=== PATIENT | female | born 2000 ===

== ENCOUNTER 2020-07-29 00:28 | Emergency (ER) | payer OTHER, SELFPAY ==
--- NOTE | ~2020-07-29 | CT_ITS ---
EXAMINATION: CT abdomen pelvis w con INDICATION: Right lower quadrant abdominal pain TECHNIQUE: Computed tomographic images of the abdomen and pelvis were obtained after the administrati on of 100 cc of Omnipaque 350 intravenous contrast. The dose-length product (DLP) was 472.17 mGy-cm. Automated exposure control and iterative reconstruction technique were employed. COMPARISON: None available FINDINGS: The lung bases are clear. The heart size is normal. The liver, spleen, pancreas, gallbladde r, and adrenal glands are normal. The kidneys are unremarkable. No pathologically enlarged abdominal or pelvic lymph nodes are identified. There is no free intraperitoneal gas or evidence of bowel obstr uction. The appendix is normal. There is a 3.4 cm cyst of the right adnexa, considered within normal limits in a reproductive age female. A small amount of free fluid in the pelvis is likely physiologic . IMPRESSION: 1. No CT correlate for the patient's symptoms. Reviewed, dictated and finalized at location A.
[2020-07-29 00:34] VITALS: BP 130/84; PULSE 111; RESP 18; TEMP 37.2; O2SAT 100
[2020-07-29 01:00] LABS: Basophils Percent Auto 0.3 % (0.2-1.2); Eosinophils Absolute Auto 0.2 K/mm3 (0-0.3); Eosinophils Percent Auto 1.2 % (0-4.4); Hematocrit 40.6 % (37.0-47.0); Hemoglobin 13.6 g/dL (12.0-15.0); Immature Granulocyte Absolute 0.05 K/mm3 (0.00-0.031); Immature Granulocyte Percent A 0.4 % (0-0.5); Lymphocytes Percent Auto 23.5 % (18.3-44.2); Mean Corpuscular HGB Conc 33.5 g/dl (32-36); Mean Corpuscular Hemoglobin 30.4 pg (26-34); Mean Corpuscular Volume 90.8 fl (80-100); Mean Platelet Volume 10.3 fl (7.4-10.4); Monocytes Absolute Auto 0.8 K/mm3 (0.1-0.6); Monocytes Percent Auto 5.8 % (2.6-8.5); Neutrophils Absolute Auto 9.7 K/mm3 (1.3-6.7); Neutrophils Percent Auto 68.8 % (45.5-73.1); Platelet Count Result 338 k/mm3 (150-375); Red Blood Count 4.47 M/mm3 (4.2-5.4); Red Cell Distribution Width 12.6 % (11.5-14.5)
[2020-07-29 01:03] LABS: Add Urine Microscopic? YES; Appearance Urine Clear (Clear); Bacteria Urine Trace /hpf; Bilirubin Urine Negative (Negative); Blood Urine Negative (Negative); Color Urine Straw (Yellow); Glucose Urine UA Negative (Negative); Ketones Urine Trace mg/dL (Negative); Leukocyte Esterase Ur 2+ LEU/UL (Negative); Nitrate Urine Negative (Negative); Protein Urine Negative (Negative); Specific Grav Ur 1.008 (1.001-1.035); Squamous Epithelial Cell Urine Many /hpf (Few); Urobilinogen Urine Negative mg/dL (<2.0); WBC Urine >75 /hpf
[2020-07-29 01:12] LABS: Alanine Aminotransferase 22 U/L (4-35); Albumin Level 4.4 g/dL (3.5-5.1); Alkaline Phosphatase 78 U/L (38-126); Anion Gap 9 mmol/L (8-16); Aspartate Amino Transferase 25 U/L (14-36); Bilirubin,Total 0.4 mg/dL (0.2-1.3); Blood Urea Nitrogen 7 mg/dL (7-17); Calcium 9.4 mg/dL (8.4-10.2); Carbon Dioxide 23 mmol/L (22-30); Chloride 103 mmol/L (98-107); Estimated Glomerular Filt Rate > 60; Glucose 100 mg/dL (65-105); Lipase 42 U/L (23-300); Potassium 3.4 mmol/L (3.4-5.0); Sodium 135 mmol/L (137-145)
[2020-07-29] MEDS: LACTATED RINGERS 1,000 ML 999 ML IV CONT (01:18)
--- NOTE | 2020-07-29 01:29 | ED.ABDPAIN ---
HPI - Abdominal Pain General Chief Complaint: Abdominal Pain Stated Complaint: lower abd pain Time Seen by Provider: 07/29/20 00:42 Source: patient Mode of arrival: ambulatory Limitations: no limitations History of Present Illness HPI narrative: This patient is a 20 year old female who presents for evaluation of right lower abdominal pain. She states 2 days ago she developed generalized abdominal pain. This morning she states her pain became located to right lower abdomen and her pain has worsened. She has been taking ibuprofen for her pain and it does help. She has associated nausea but no vomiting or diarrhea. She also states she has some burning with urination. Related Data Allergies Allergy/AdvReac Type Severity Reaction Status Date / Time No Known Allergies Allergy Verified 07/29/20 00:29 Review of Systems Review of Systems: All systems reviewed & are unremarkable except as noted in HPI and below Constitutional: Constitutional: Denies chills and Denies fever(s) Respiratory: Respiratory: Denies cough and Denies dyspnea Gastrointestinal: Gastrointestinal: Reports abdominal pain, Denies diarrhea, Reports nausea and Denies vomiting Genitourinary: Genitourinary: Denies hematuria, Reports dysuria and Denies flank pain Musculoskeletal: Musculoskeletal: Denies back pain PMFSH Past Medical History Medical History (Updated 07/29/20 @ 02:47 by Sarita Muse MD) ADHD Anxiety Depression Surgical History Surgical History (Updated 07/29/20 @ 01:30 by Sarita Muse MD) H/O wisdom tooth extraction Exam Narrative: Exam Narrative: GENERAL: Well-appearing, well-nourished, and in no acute distress. HEAD: Normocephalic, atraumatic EYES: PERRLA and EOMI, conjunctiva clear without discharge THROAT:Mucous membranes moist, Oropharynx normal without erythema, exudate, peritonsillar swelling or fluctuance NECK: Supple, without lymphadenopathy or mass RESPIRATORY: No respiratory distress, Airway patent, Respirations non-labored, Clear to auscultation without rales, rhonchi or wheeze HEART: Regular rate and rhythm. No murmur heard. Normal peripheral pulses. ABDOMEN: Soft, RLQ suprapubic, nondistended, normal active bowel sounds. No masses. No rebound or guarding, No organomegaly. EXTREMITIES: No edema, normal strength with full range of motion. SKIN: Warm, dry, normal color without rash NEURO: Alert and oriented x3. CN 2-12 grossly intact. No focal deficits. PSYCH: Normal mood and affect. : Speculum Exam - Vagina: abnormal vaginal discharge yellow Speculum Exam - Cervix: Cervical os closed Bimanual exam- vagina & uterus: no cervical motion tenderness Bimanual Exam- Adnexa, other: no masses noted Course Reevaluation(s) Reevaluation #1: I Discussed with patient that CT shows normal appendix. She has a UTI and an ovarian cyst. She understands follow up. Date: 07/29/20 Time: 02:46 Vital Signs Vital signs: Vital Signs Temperature 99.0 F 07/29/20 00:34 Pulse Rate 111 H 07/29/20 00:34 Respiratory Rate 18 07/29/20 00:34 Blood Pressure 130/84 07/29/20 00:34 Pulse Oximetry 100 07/29/20 00:34 Temperature 99.0 F 07/29/20 00:34 Pulse Rate 80 07/29/20 03:49 Respiratory Rate 16 07/29/20 03:49 Blood Pressure 134/88 07/29/20 03:49 Pulse Oximetry 97 07/29/20 03:49 MDM - Abdominal Pain Lab Data Attestation: I reviewed the patient's lab results. Result diagrams: 07/29/20 00:52 07/29/20 00:52 Labs: Lab Results 07/29/20 07/29/20 07/29/20 Range/Units 00:52 00:52 00:52 WBC 14.0 H (4.5-10.0) K/mm3 RBC 4.47 (4.2-5.4) M/mm3 Hgb 13.6 (12.0-15.0) g/dL Hct 40.6 (37.0-47.0) % MCV 90.8 (80-100) fl MCH 30.4 (26-34) pg MCHC 33.5 (32-36) g/dl RDW 12.6 (11.5-14.5) % Plt Count 338 (150-375) k/mm3 MPV 10.3 (7.4-10.4) fl Immature Gran % (Auto) 0.4 (0-0.5) % Neut % (Auto) 68.8 (45.5-73.1) % Lymp
[2020-07-29 03:49] VITALS: BP 134/88; PULSE 80; RESP 16; O2SAT 97
== END 2020-07-29 04:02 | disposition home or self-care (01) ==
PROVIDERS: Emergency Provider General Practice
DX: N39.0 Urinary tract infection, site not specified (principal); N83.201 Unspecified ovarian cyst, right side
CPT/HCPCS: 36415; 74177; 80053; 81001; 81025; 83690; 85025; 87070; 87077; 87086; 87088; 87491; 87591; 87808; 96374; 96375; 99284; J0131; J0696; J7120; Q9967

== ENCOUNTER 2020-08-24 22:32 | Inpatient (IN) | payer OTHER, SELFPAY ==
[2020-08-24] VITALS (10 sets, daily range): BP systolic 104–160; BP diastolic 68–130; PULSE 120–146; RESP 14–22; TEMP 38.3; O2SAT 91–100
--- NOTE | ~2020-08-24 | CT_ITS ---
EXAMINATION: CT abdomen pelvis w con DATE: 08/25/2020 00:08 INDICATION: Lower abdominal pain TECHNIQUE: Computed tomography (CT) of the abdomen and pelvis was performed with 100 cc Omnipaque 350 intravenous contrast. The dose-length product was 381.77 mGy-cm. Automated exposure control and iter ative reconstruction technique were employed. COMPARISON: CT dated 07/29/2020. FINDINGS: Lung bases are unremarkable. No significant pleural or pericardial effusion. Heart size nor mal. The liver, spleen, pancreas, adrenal glands and kidneys are unremarkable. There is mild urothelial en hancement. There is bladder wall thickening. There are bilateral ovarian cysts, largest measuring dariel roximately 3 cm maximum dimension in the right ovary. Nonobstructive bowel gas pattern. No significan t vascular abnormality. Gallbladder is present. No lymphadenopathy. IMPRESSION: 1. Mild bladder wall thickening with urothelial enhancement. Cannot exclude cystitis with ascending u rinary tract infection. Consider correlation with urinalysis. 2: Bilateral ovarian cysts, likely physiologic. Reviewed, dictated and finalized at location A. IMPRESSION: 1. Mild bladder wall thickening with urothelial enhancement. Cannot exclude cys titis with ascending urinary tract infection. Consider correlation with urinaly sis. 2: Bilateral ovarian cysts, likely physiologic.
--- NOTE | 2020-08-24 22:51 | ECG_ITS ---
Measurements Intervals [place] Rate: 139 P: 50 NV: 129 QRS: 41 QRSD: 86 T: 35 QT: 352 QTc: 536 Interpretive Statements SINUS TACHYCARDIA NONSPECIFIC T-WAVE ABNORMALITY- INFERIOR LEADS BASELINE WANDER- V4 ABNORMAL ECG Electronically Signed On 08-25-2020 7:47:28 CDT by Gray Temple D.O.
[2020-08-24] MEDS: MORPHINE SULFATE (*CRX) 4 MG/ML INJ IV PUSH (22:55)
[2020-08-24] MEDS: SODIUM CHLORIDE 0.9% IV 1,000 ML 999 ML IV CONT (22:55)
[2020-08-24] MEDS: ONDANSETRON INJ 4 MG/2 ML VIAL IV PUSH (22:55)
--- NOTE | 2020-08-24 23:06 | ED.ABDPAIN ---
HPI - Abdominal Pain General Chief Complaint: Abdominal Pain Stated Complaint: right sided pain, fever Time Seen by Provider: 08/24/20 22:40 Source: patient and family Mode of arrival: ambulatory Limitations: no limitations History of Present Illness HPI narrative: 20 years old white female presents with diffuse lower abdominal pain that started earlier today associated with nausea, dysuria, fever, dull aching radiating to lower back and mid back bilaterally, slightly better with ibuprofen, nothing make it better. She denies any vaginal bleeding or discharge. Last menstrual. 1 week ago, never been , she does vape, drinks occasionally, no drugs. History of ADHD and anxiety. Patient reports having similar symptoms 3 weeks ago with a diagnosis of right ovarian cyst and urinary tract infection. Patient had positive COVID-19 test June 29. Related Data Home Medications Medication Instructions Recorded Confirmed methylphenidate HCl [Concerta] mg PO 08/24/20 norethindrone ac-eth estradiol tablet 08/24/20 Allergies Allergy/AdvReac Type Severity Reaction Status Date / Time No Known Allergies Allergy Verified 08/24/20 22:47 Review of Systems Review of Systems: Narrative: CONSTITUTIONAL: Denies fever, chills, or sweats. EYES: Denies visual changes, redness, or discharge. ENT: Denies rhinorrhea, congestion, sore throat, or otalgia. CARDIOVASCULAR: Denies chest pain, palpitations, or edema. RESPIRATORY: Denies cough or dyspnea. GASTROINTESTINAL: Denies abdominal pain, nausea, vomiting, or diarrhea. GENITOURINARY: Denies dysuria or hematuria. SKIN: Denies rash or itching. MUSCULOSKELETAL: Denies back pain, joint pain, or myalgia. NEUROLOGIC: Denies headache, numbness, or weakness. PSYCHIATRIC: Denies anxiety or depression. PMFSH Past Medical History Medical History ADHD Anxiety Depression Surgical History Surgical History H/O wisdom tooth extraction Exam Narrative: Exam Narrative: General appearance: Well-developed, well-nourished, looks in pain, mother at the bedside Skin: Normal color Head: Normocephalic, nontraumatic Eyes: Clear conjunctiva ENT: Oropharynx normal, ears normal, nose normal Neck: Supple, nontender Chest and respiratory: Airway patent, no respiratory distress, no accessory muscle use Heart: Tachycardia Abdomen: Soft, severe diffuse tenderness lower abdomen bilaterally, positive guarding and rebound, quiet bowel sounds Neurologic: Alert and oriented ?3, OUTPATIENT CODING SPECIALIST is normal as tested, no gross motor deficit Course Course Emergency Course: Stable Reevaluation(s) Reevaluation #1: Currently patient having no fever, but still having pain at the lower abdomen bilaterally which is less than on arrival. Patient heart rate is 121 bpm at this time compared to 155 on arrival. Patient received 1 L of normal saline, Rocephin 1 g IV, morphine 4 mg, Zofran [address] abdomen and pelvis. Signout to Dr. Robb at shift change Date: 08/25/20 Time: 00:28 Vital Signs Vital signs: Vital Signs Temperature 38.3 C H 08/24/20 22:41 Pulse Rate 145 H 08/24/20 22:41 Respiratory Rate 18 08/24/20 22:41 Blood Pressure 108/72 08/24/20 22:41 Pulse Oximetry 97 08/24/20 22:41 Temperature 38.3 C H 08/24/20 22:41 Pulse Rate 126 H 08/24/20 23:37 Respiratory Rate 22 H 08/24/20 23:37 Blood Pressure 104/68 08/24/20 23:37 Pulse Oximetry 100 08/24/20 23:37 MDM - Abdominal Pain MDM Narrative Medical decision making narrative: Patient presents with lower abdominal pain/dizziness nausea and fever. Urin
[2020-08-24 23:21] LABS: Basophils Percent Auto 0.2 % (0.2-1.2); Hematocrit 35.1 % (37.0-47.0); Hemoglobin 11.9 g/dL (12.0-15.0); Immature Granulocyte Absolute 0.18 K/mm3 (0.00-0.031); Immature Granulocyte Percent A 1.5 % (0-0.5); Lymphocytes Absolute Auto 0.93 K/mm3 (0.9-3.2); Lymphocytes Percent Auto 7.5 % (18.3-44.2); Mean Corpuscular HGB Conc 33.9 g/dl (32-36); Mean Corpuscular Hemoglobin 30.4 pg (26-34); Mean Corpuscular Volume 89.8 fl (80-100); Mean Platelet Volume 10.7 fl (7.4-10.4); Monocytes Absolute Auto 0.9 K/mm3 (0.1-0.6); Monocytes Percent Auto 7.4 % (2.6-8.5); Neutrophils Absolute Auto 10.3 K/mm3 (1.3-6.7); Neutrophils Percent Auto 83.4 % (45.5-73.1); Platelet Count Result 267 k/mm3 (150-375); Red Blood Count 3.91 M/mm3 (4.2-5.4); Red Cell Distribution Width 12.1 % (11.5-14.5); White Blood Count 12.4 K/mm3 (4.5-10.0)
[2020-08-24 23:29] LABS: Alanine Aminotransferase 23 U/L (4-35); Albumin Level 4.4 g/dL (3.5-5.1); Alkaline Phosphatase 64 U/L (38-126); Anion Gap 12 mmol/L (8-16); Aspartate Amino Transferase 25 U/L (14-36); Bilirubin,Total 0.8 mg/dL (0.2-1.3); Blood Urea Nitrogen 8 mg/dL (7-17); Calcium 9.5 mg/dL (8.4-10.2); Carbon Dioxide 24 mmol/L (22-30); Chloride 101 mmol/L (98-107); Estimated CRCL calculation 101 ml/min; Estimated Glomerular Filt Rate > 60; Glucose 112 mg/dL (65-105); Lipase 19 U/L (23-300); Potassium 3.4 mmol/L (3.4-5.0); Sodium 137 mmol/L (137-145)
[2020-08-24 23:36] LABS: Add Urine Microscopic? YES; Appearance Urine Cloudy (Clear); Bacteria Urine Trace /hpf; Bilirubin Urine Negative (Negative); Blood Urine Negative (Negative); Color Urine Yellow (Yellow); Glucose Urine UA Negative (Negative); Ketones Urine Negative (Negative); Leukocyte Esterase Ur 3+ LEU/UL (Negative); Mucus Urine Few /lpf; Nitrate Urine Negative (Negative); Protein Urine 1+ mg/dL (Negative); Specific Grav Ur 1.017 (1.001-1.035); Squamous Epithelial Cell Urine Many /hpf (Few); WBC Clumps Urine Present /HPF; WBC Urine >75 /hpf
[2020-08-25] VITALS (15 sets, daily range): BP systolic 100–111; BP diastolic 49–66; PULSE 100–130; RESP 16–22; TEMP 36.6–38; O2SAT 96–100; BMI 28.1
--- NOTE | 2020-08-25 01:30 | ADMGEN ---
This patient, Shyla Aguilar, was admitted to [facility] Surg Room 303-01. Patient/family oriented to hospital policies and general routines including ID bracelet, bed and alarms, visiting hours, pain management, procedures, bathroom and other care routines, personal items, smoking policy, room service/diet, and visiting hours. Valuables list has been completed. Information on how to activate the Rapid Response Team has been discussed. Patient/Family are encouraged to report perceived risks to care and to ask questions if they do not understand what they are told or what they should do.
[2020-08-25] MEDS: SODIUM CHLORIDE 0.9% IV 1,000 ML 125 ML IV CONT ×3 (01:55→16:30)
--- NOTE | 2020-08-25 03:01 | PM.IMHP ---
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 The patient reports that she was COVID-19 postive on June 29 and she self quarantined but did also suffer another UTI about 3 weeks ago. Before this summer she had never had a UTI before. Associated symptoms tonight include fever and nausea. The patient was evaluated in the ER tonight and found to have an abnormal urinalysis. CT abd/pelvis was performed which demonstrated cystitis and inflammed ureter but no hydronephrosis. The patient was treated with IV antibiotics and admitted for further care. She has no other complaints. Review of Systems Review of Systems: All systems reviewed & are unremarkable except as noted in HPI and below PMFSH Past Medical History Medical History ADHD Anxiety Depression Surgical History Surgical History H/O wisdom tooth extraction Family History Family History Father TIA (transient ischemic attack) Mother Ovarian cyst Social History Social History Smoking status: Current every day smoker Tobacco type: e-cigarettes/vaping Additional smoking assessment comments: Uses 50mcg nicotine solution and a 30ml bottle lasts 1 week. Alcohol intake: current Drinks per week: 1 Substance use: never Gender identity (if verbalized by the patient): Female Spiritual care concerns: No Meds Home Medications and Allergies Home Medications Medication Instructions Recorded Confirmed Type methylphenidate HCl [Concerta] 27 mg PO DAILY 08/24/20 08/25/20 History norethindrone ac-eth estradiol 1 tablet PO DAILY 08/24/20 08/25/20 History [Loestrin 12/18 (21)] Allergies Allergy/AdvReac Type Severity Reaction Status Date / Time No Known Allergies Allergy Verified 08/24/20 22:47 Vital Signs Vital Signs - 24 hr 08/24/20 22:41 08/24/20 22:54 08/24/20 23:00 Temperature 38.3 C H Pulse Rate 145 H 146 H 133 H Respiratory Rate 18 14 14 Blood Pressure 108/72 Pulse Oximetry 97 98 95 08/24/20 23:01 08/24/20 23:17 08/24/20 23:30 Temperature Pulse Rate 136 H 136 H 120 H Respiratory Rate 20 Blood Pressure 114/73 Pulse Oximetry 95 91 08/24/20 23:31 08/24/20 23:37 08/24/20 23:58 Temperature Pulse Rate 129 H 126 H 121 H Respiratory Rate 19 22 H 16 Blood Pressure 104/68 104/68 Pulse Oximetry 99 100 99 08/24/20 23:59 08/25/20 00:00 08/25/20 00:01 Temperature Pulse Rate 125 H 129 H 121 H Respiratory Rate 16 18 Blood Pressure 160/130 H 104/61 Pulse Oximetry 98 100 98 08/25/20 00:15 08/25/20 00:30 08/25/20 00:31 Temperature Pulse Rate 128 H 126 H 130 H Respiratory Rate 21 H 22 H 16 Blood Pressure 103/61 Pulse Oximetry 98 98 97 08/25/20 00:34 08/25/20 01:18 08/25/20 01:32 Temperature 38.0 C H 38.0 C H 37.9 C H Pulse Rate 128 H 120 H 121 H Respiratory Rate 22 H 22 H 20 Blood Pressure 103/61 100/63 102/66 Pulse Oximetry 96 97 100 08/25/20 02:05 Temperature 38.0 C H Pulse Rate Respiratory Rate Blood Pressure Pulse Oximetry Exam Const: General: cooperative, no acute distress, alert, awake, ill appearing and other (febrile to touch++ ) Nutritional Appearance: well nourished Orientation/consciousness: patient oriented x3 HENMT: Head: normal to inspection General nose exam: Normal external nose present Face and sinus: normal facial exam Mouth: Yes Normal oral and palatal mucosa present and Yes oropharynx normal Eyes: Pupils: Equal, round and reactive pupils present EOM: EOMs intact bilater
[2020-08-25 06:55] LABS: Anion Gap 5 mmol/L (8-16); Blood Urea Nitrogen 5 mg/dL (7-17); Calcium 8.7 mg/dL (8.4-10.2); Carbon Dioxide 25 mmol/L (22-30); Chloride 106 mmol/L (98-107); Estimated CRCL calculation 104 ml/min; Estimated Glomerular Filt Rate > 60; Glucose 109 mg/dL (65-105); Potassium 3.8 mmol/L (3.4-5.0); Sodium 136 mmol/L (137-145)
--- NOTE | 2020-08-25 09:35 | PM.IMPN ---
Progress Note: A&P Assessment and Plan (1) Pyelonephritis: Code(s): N12 - Tubulo-interstitial nephritis, not specified as acute or chronic Status: Acute Assessment and Plan: Urinalysis grossly abnormal. CT a/p mild bladder wall thickening with urothelial enhancement, ascending UTI not excluded. She has significant CVA tenderness. Renal function is appropriate. Continue IV Rocephin and IV fluids Urine culture is pending; await culture and tailor abx accordingly (2) Sepsis: Qualifiers: Sepsis type: sepsis due to unspecified organism Sepsis acute organ dysfunction status: without acute organ dysfunction Qualified Code(s): A41.9 - Sepsis, unspecified organism Code(s): A41.9 - Sepsis, unspecified organism Status: Acute Assessment and Plan: Secondary to urinary tract infection. Febrile with T-max of 100.4?. She has been tachycardic up to 130s. This is improving and she is now in 110s. Improving leukocytosis at 12.4 today. Continue IV antibiotics Continue IV fluids Blood cultures pending (3) Anemia: Qualifiers: Anemia type: unspecified type Qualified Code(s): D64.9 - Anemia, unspecified Code(s): D64.9 - Anemia, unspecified Status: Acute Assessment and Plan: Mild anemia. H&H is stable. Suspect iron deficiency. Her LMP was approximately 1 week ago and she reports somewhat heavy periods. No signs of active bleeding. Monitor H&H; transfuse as needed for Hgb <7.0 (4) Ovarian cyst: Qualifiers: Laterality: bilateral Qualified Code(s): N83.201 - Unspecified ovarian cyst, right side; N83.202 - Unspecified ovarian cyst, left side Code(s): N83.209 - Unspecified ovarian cyst, unspecified side Status: Acute Assessment and Plan: Reports history of ovarian cysts. Recently seen in ED and had 3.4 cm right ovarian cyst seen at that time. She was scheduled for follow up with OBGYN but has not been able to follow up. CT a/p 08/25 shows bilateral ovarian cysts, likely physiologic, largest measuring 3 cm max of right ovary. She complains of 6/10 lower abdominal pain. Ibuprofen as needed for pain Follow up with OBGYN Subjective Date/time seen: 08/25/20 09:35 Interval history: date of service: 08/25/2020 Shyla Aguilar is a 20-year-old female with a history of ovarian cysts and recent chlamydia infection who is seen in follow-up for probable pyelonephritis with sepsis. She is complaining of bilateral lower abdominal pain rated 6/10. She has significant dysuria and reports her urine is cloudy. She denies urgency, frequency, or hematuria. Denies vaginal discharge. She complains of flank pain and back pain. She reports fevers and chills. Denies any nausea or vomiting. No shortness of breath, LIND, cough, chest pain, or palpitations. she has been on clear liquids and has requested to advance to a regular diet. She denies dizziness, lightheadedness, weakness, or fatigue. She has no additional concerns. Review of Systems Review of Systems: Narrative: 12 systems reviewed with pertinent positives and negatives as per HPI. Exam Narrative: Exam Narrative: Ms. Aguilar is a well nourished, well appearing 20 year old female who is walking around the room. She appears comfortable and is in NAD. HR 114, BP 102/61, RR 16, T 98.9, 100% on room air Neuro: awake, alert and oriented x4, speech clear, no focal neuro deficits noted HEENMT: normocephalic, atraumatic, EOMI, sclerae anicteric, moist oral mucosa, tongue midline, nares patent Neck: supple, no lymphadenopathy Respiratory: clear to auscultation bilaterally, nonlabored breathing Cardio: tachycardic, regular rhythm with S1-S2 Abdomen: nondistended, normoactive bowel sounds, soft, tender to palpation in lower quadrants and flanks, no rigidity or guarding, no rebound tenderness : bilateral CVA tenderness Extremities: no edema, erythema, cyanosis, clubbing, or tende
[2020-08-25] MEDS: IBUPROFEN 400 MG TABLET PO (10:23)
[2020-08-25] MEDS: MORPHINE SULFATE (*CRX) 2 MG/ML INJ IV PUSH (16:30)
[2020-08-25] MEDS: ONDANSETRON INJ 4 MG/2 ML VIAL IV PUSH (18:22)
[2020-08-25] MEDS: ACETAMINOPHEN 325 MG TABLET 650 MG PO (18:23)
[2020-08-26] MEDS: SODIUM CHLORIDE 0.9% IV 1,000 ML 125 ML IV CONT ×2 (00:29→09:42)
[2020-08-26] MEDS: MORPHINE SULFATE (*CRX) 2 MG/ML INJ IV PUSH (00:44)
[2020-08-26] MEDS: ONDANSETRON INJ 4 MG/2 ML VIAL IV PUSH ×2 (00:46→14:19)
[2020-08-26] MEDS: ACETAMINOPHEN 325 MG TABLET 650 MG PO ×3 (03:16→23:21)
[2020-08-26 05:46] VITALS: BP 92/52; PULSE 96; RESP 18; TEMP 36.4; O2SAT 98
[2020-08-26 06:37] LABS: Basophils Percent Auto 0.2 % (0.2-1.2); Eosinophils Percent Auto 0.2 % (0-4.4); Hematocrit 30.3 % (37.0-47.0); Immature Granulocyte Absolute 0.08 K/mm3 (0.00-0.031); Immature Granulocyte Percent A 0.5 % (0-0.5); Lymphocytes Absolute Auto 1.73 K/mm3 (0.9-3.2); Lymphocytes Percent Auto 10.5 % (18.3-44.2); Mean Corpuscular Hemoglobin 30.1 pg (26-34); Mean Corpuscular Volume 91.3 fl (80-100); Mean Platelet Volume 10.5 fl (7.4-10.4); Monocytes Absolute Auto 1.7 K/mm3 (0.1-0.6); Monocytes Percent Auto 10.4 % (2.6-8.5); Neutrophils Absolute Auto 12.9 K/mm3 (1.3-6.7); Neutrophils Percent Auto 78.2 % (45.5-73.1); Platelet Count Result 205 k/mm3 (150-375); Red Blood Count 3.32 M/mm3 (4.2-5.4); Red Cell Distribution Width 12.7 % (11.5-14.5); White Blood Count 16.5 K/mm3 (4.5-10.0)
[2020-08-26 06:46] LABS: Anion Gap 5 mmol/L (8-16); Blood Urea Nitrogen 2 mg/dL (7-17); Calcium 8.3 mg/dL (8.4-10.2); Carbon Dioxide 23 mmol/L (22-30); Chloride 108 mmol/L (98-107); Estimated CRCL calculation 141 ml/min; Estimated Glomerular Filt Rate > 60; Glucose 99 mg/dL (65-105); Potassium 3.3 mmol/L (3.4-5.0); Sodium 136 mmol/L (137-145)
[2020-08-26 14:00] VITALS: BP 115/64; PULSE 98; RESP 18; TEMP 36.6; O2SAT 100
[2020-08-26] MEDS: IBUPROFEN 400 MG TABLET PO ×2 (14:19→20:31)
--- NOTE | 2020-08-26 16:22 | PM.IMPN ---
Progress Note: A&P Assessment and Plan (1) Pyelonephritis: Code(s): N12 - Tubulo-interstitial nephritis, not specified as acute or chronic Status: Acute Assessment and Plan: Urinalysis grossly abnormal. CT a/p showed mild bladder wall thickening with urothelial enhancement, ascending UTI not excluded. She has significant CVA tenderness. Renal function is appropriate. Urine culture growing >100,000 E coli. Continue IV Rocephin Discontinue IV fluids as patient is tolerating PO intake and vitals are stable Await final urine cultures and tailor abx accordingly. Hopeful discharge tomorrow with transition to PO abx if continued improvement. (2) Sepsis: Qualifiers: Sepsis type: sepsis due to unspecified organism Sepsis acute organ dysfunction status: without acute organ dysfunction Qualified Code(s): A41.9 - Sepsis, unspecified organism Code(s): A41.9 - Sepsis, unspecified organism Status: Acute Assessment and Plan: Secondary to urinary tract infection. Febrile with T-max of 100.9?. She has been tachycardic up to 130s. This is improving and she is now in 110s. Increased leukocytosis at 16.5 today. Tachycardia has resolved and she has been afebrile today. Continue IV antibiotics IV fluids discontinued as above. Preliminary BCx with NGTD. Await final cultures (3) Anemia: Qualifiers: Anemia type: unspecified type Qualified Code(s): D64.9 - Anemia, unspecified Code(s): D64.9 - Anemia, unspecified Status: Acute Assessment and Plan: Mild anemia. H&H is stable. Suspect iron deficiency. Her LMP was approximately 1 week ago and she reports somewhat heavy periods. No signs of active bleeding. Mild decline in H&H today which I suspect is dilutional given IV fluids. Monitor H&H; transfuse as needed for Hgb <7.0 (4) Ovarian cyst: Qualifiers: Laterality: bilateral Qualified Code(s): N83.201 - Unspecified ovarian cyst, right side; N83.202 - Unspecified ovarian cyst, left side Code(s): N83.209 - Unspecified ovarian cyst, unspecified side Status: Chronic Assessment and Plan: Reports history of ovarian cysts. Recently seen in ED and had 3.4 cm right ovarian cyst seen at that time. She was scheduled for follow up with OBGYN but has not been able to follow up. CT a/p 08/25 shows bilateral ovarian cysts, likely physiologic, largest measuring 3 cm max of right ovary. She complains of 6/10 lower abdominal pain. Ibuprofen as needed for pain Follow up with OBGYN Subjective Date/time seen: 08/26/20 16:22 Interval history: Date of service: 08/26/2020 Shyla Aguilar is a 20-year-old female with a history of ovarian cysts and recent UTI and chlamydia infection who is seen in follow-up for pyelonephritis with sepsis. She reports that she is feeling better today. Her lower abdominal pain has improved. However, she reports an episode of pain this afternoon that was so severe it caused her to vomit. Back pain and flank pain persist. She denies dysuria, hematuria, urgency, or frequency. She denies fevers or chills. Appetite has been good. No cough, shortness of breath, LIND, chest pain, palpitations, dizziness, or lightheadedness. Review of Systems Review of Systems: Narrative: Twelve systems reviewed with pertinent positives and negatives as per HPI. Exam Narrative: Exam Narrative: Ms. Aguilar is a well nourished, well appearing 20 year old female who is walking around the room. She appears comfortable and is in NAD. HR 96, BP 92/52, R 18, T 97.6?, 98% on room air Neuro: awake, alert and oriented x4, speech clear, no focal neuro deficits noted HEENMT: normocephalic, atraumatic, EOMI, sclerae anicteric, moist oral mucosa, tongue midline, nares patent Neck: supple, no lymphadenopathy Respiratory: clear to auscultation bilaterally, nonlabored breathing Cardio: Regular rate, regular rhythm with S1-S2 Abdomen: non
[2020-08-26] MEDS: POTASSIUM CHLORIDE 20 MEQ TABLET PO (18:30)
[2020-08-26 21:44] VITALS: BP 101/60; PULSE 95; RESP 20; TEMP 36.9; O2SAT 100
[2020-08-27 06:00] VITALS: BP 108/63; PULSE 92; RESP 16; TEMP 36.4; O2SAT 100
[2020-08-27 06:39] LABS: Basophils Percent Auto 0.2 % (0.2-1.2); Eosinophils Absolute Auto 0.3 K/mm3 (0-0.3); Eosinophils Percent Auto 2.3 % (0-4.4); Hemoglobin 9.9 g/dL (12.0-15.0); Immature Granulocyte Absolute 0.03 K/mm3 (0.00-0.031); Immature Granulocyte Percent A 0.3 % (0-0.5); Lymphocytes Absolute Auto 2.53 K/mm3 (0.9-3.2); Lymphocytes Percent Auto 23.3 % (18.3-44.2); Mean Corpuscular Hemoglobin 30.6 pg (26-34); Mean Corpuscular Volume 92.6 fl (80-100); Monocytes Absolute Auto 1.1 K/mm3 (0.1-0.6); Monocytes Percent Auto 10.3 % (2.6-8.5); Neutrophils Absolute Auto 6.9 K/mm3 (1.3-6.7); Neutrophils Percent Auto 63.6 % (45.5-73.1); Platelet Count Result 223 k/mm3 (150-375); Red Blood Count 3.24 M/mm3 (4.2-5.4); Red Cell Distribution Width 12.7 % (11.5-14.5); White Blood Count 10.9 K/mm3 (4.5-10.0)
[2020-08-27 06:52] LABS: Anion Gap 7 mmol/L (8-16); Calcium 8.9 mg/dL (8.4-10.2); Carbon Dioxide 24 mmol/L (22-30); Chloride 108 mmol/L (98-107); Estimated CRCL calculation 141 ml/min; Estimated Glomerular Filt Rate > 60; Glucose 79 mg/dL (65-105); Potassium 3.8 mmol/L (3.4-5.0); Sodium 139 mmol/L (137-145)
[2020-08-27 07:28] LABS: Blood Urea Nitrogen < 2 mg/dL (7-17)
--- NOTE | 2020-08-27 09:57 | PM.DS ---
DS: Admitting Diagnosis Admitting Diagnosis Admitting Diagnosis: Urinary tract infection DS: Discharge Diagnosis Discharge Diagnosis (1) Pyelonephritis: Code(s): N12 - Tubulo-interstitial nephritis, not specified as acute or chronic Status: Acute Assessment and Plan: Urinalysis grossly abnormal. CT a/p showed mild bladder wall thickening with urothelial enhancement, ascending UTI not excluded. She had significant CVA tenderness. Urine culture grew >100,000 E coli sensitive to Rocephin. She received 3 doses IV Rocephin and was rehydrated with IV fluids. She will continue PO Cefdinir bid for 10 days. (2) Sepsis: Qualifiers: Sepsis acute organ dysfunction status: without acute organ dysfunction Sepsis type: sepsis due to unspecified organism Qualified Code(s): A41.9 - Sepsis, unspecified organism Code(s): A41.9 - Sepsis, unspecified organism Status: Acute Assessment and Plan: Evident by fever, tachycardia, and leukocytois. Secondary to urinary tract infection. At presentation, she was febrile with T-max of 100.9?, tachycardic up to 130s, and WBC elevated up to 16.5. She was rehydrated with IV fluids. Blood cultures with NGTD, final cultures will be monitored. Fever and tachycardia resolved. Leukocytosis markedly improved, 10.9 at time of discharge. (3) Anemia: Qualifiers: Anemia type: unspecified type Qualified Code(s): D64.9 - Anemia, unspecified Code(s): D64.9 - Anemia, unspecified Status: Acute Assessment and Plan: Mild anemia. H&H is stable. Suspect iron deficiency in menstruating female. Her LMP was approximately 1 week ago and she reports somewhat heavy periods. No signs of active bleeding. Vital signs remained stable. (4) Ovarian cyst: Qualifiers: Laterality: bilateral Qualified Code(s): N83.201 - Unspecified ovarian cyst, right side; N83.202 - Unspecified ovarian cyst, left side Code(s): N83.209 - Unspecified ovarian cyst, unspecified side Status: Chronic Assessment and Plan: Reports history of ovarian cysts. Recently seen in ED and had 3.4 cm right ovarian cyst seen at that time. She was scheduled for follow up with OBGYN but has not been able to attend appointment. CT a/p taken 08/25 shows bilateral ovarian cysts, likely physiologic, largest measuring 3 cm max of right ovary. She had lower abdominal discomfort that was relieved with ibuprofen. She has been referred to on-call OBGYN Dr. Doyle for follow up. She will also be due for a Pap smear as she recently turned 20. Encouraged her to attend follow up. DS: Summary Hospital Course Reason for hospitalization: Abdominal pain Hospital Course: Date of admission: 08/24/2020 Date of discharge: 08/26/2020 Shyla Aguilar is a 20 year old female with a history of ADHD, anxiety, and depression who presented to the emergency department on 08/24/2020 with complaints of diffuse lower abdominal pain for 1 day with associated nausea, vomiting, dysuria, fever, back pain, and flank pain. She was recently seen in the ED 3 weeks ago for similar pain and found to have UTI and ovarian cyst. She completed a course of cefpodoxime at that time. At presentation, T 100.9, HR 145, WBC 12.4, H&H 11.9 and 35.1, electrolytes stable, UA grossly abnormal, bedside test negative, and CT a/p showing mild bladder wall thickening with urothelial enhancement and likely physiologic bilateral ovarian cysts. She was admitted to the hospitalist service for further evaluation and management. Please see above for further details. She was treated with IV antibiotics. Sepsis resolved. She began feeling much better and was eager for discharge. Given her overall improvement, she was determined to no longer require inpatient care. She will continue a course of PO antibiotics and will need to follow up with PCP. She was referred to on-call OBGYN regarding painful ovarian cysts. We discussed worrisome sig
[2020-08-27] MEDS: CEFDINIR 300 MG CAPSULE PO (10:57)
== END 2020-08-27 11:20 | disposition home or self-care (01) | DRG 690 ==
LOC: ANHED 08-25 00:35 → ANH3MEDSUR 08-25 03:28
PROVIDERS: Admitting Provider Family Medicine; Emergency Provider Emergency Medicine; PCP Emergency Medicine; Visit Provider Physician Assistant
DX: N39.0 Urinary tract infection, site not specified (principal); B96.20 Unspecified Escherichia coli [E. coli] as the cause of diseases classified elsewhere; N83.291 Other ovarian cyst, right side; N83.292 Other ovarian cyst, left side; D64.9 Anemia, unspecified; D50.8 Other iron deficiency anemias; F90.9 Attention-deficit hyperactivity disorder, unspecified type; F41.8 Other specified anxiety disorders; Z86.19 Personal history of other infectious and parasitic diseases
CPT/HCPCS: 36415; 74177; 80048; 80053; 81001; 81025; 83690; 85025; 87040; 87077; 87086; 87088; 87186; 93005; 96361; 96365; 96374; 96375; 99285; A9270; J0131; J0696; J2270; J2405; J7030; Q9967